=== PATIENT | female | born 1995 | race Caucasian/White ===

== ENCOUNTER 2019-06-27 12:32 | Emergency (ER) | payer BC ==
[~2019-06-27] VITALS: Ht 165.1 cm; Wt 76.4 kg
--- NOTE | 2019-06-27 12:53 | NUR ---
PT C/O DIARRHEA FOR A WHILE. HX CROHNS. PT SEES BLOOD IN TOILET AFTER DIARRHEA, CURRENTLY HAS ANAL FISSURE. PT CURRENTLY SEEING GI, NEXT APPT IN TWO WEEK. CONNECTED TO MONITORING. CALL LIGHT IN REACH.
--- NOTE | 2019-06-27 13:09 | NUR ---
IV START. LABS COLLECTED AND TAKEN TO LAB.
[2019-06-27 13:15] LABS: BASOPHILS # (AUTO) 0.04 x10^3/uL (0-0.1); BASOPHILS % (AUTO) 0 % (0-1); EOSINOPHILS # (AUTO) 0.06 x10^3/uL (0-0.4); EOSINOPHILS % (AUTO) 0 % (1-7); LYMPHOCYTES # (AUTO) 2.78 x10^3/uL (1-3.4); LYMPHOCYTES % (AUTO) 21 % (22-44); MD NO; MEAN CORPUSCULAR HEMOGLOBIN 29.9 pg (27.0-34.8); MEAN CORPUSCULAR HGB CONC 33.2 g/dL (32.4-35.8); MEAN CORPUSCULAR VOLUME 89.9 fL (80-100); MEAN PLATELET VOLUME 7.2 fL (7.4-10.4); MONOCYTES # (AUTO) 0.62 x10^3/uL (0.2-0.8); MONOCYTES % (AUTO) 5 % (2-9); NEUTROPHILS # (AUTO) 9.52 x10^3/uL (1.8-6.8); NEUTROPHILS % (AUTO) 73 % (42-75); PLATELET COUNT 262 x10^3/uL (130-400); RED BLOOD COUNT 4.54 x10^6/uL (3.82-5.3); RED CELL DISTRIBUTION WIDTH 13.4 % (9.6-15.2)
--- NOTE | 2019-06-27 13:18 | NUR ---
PT AMBULATED TO RESTROOM WITH STEADY GAIT TO PROVIDE URINE SAMPLE. UA COLLECTED AND SENT TO LAB.
[2019-06-27 13:26] LABS: ALANINE AMINOTRANSFERASE 12 U/L (12-78); ALBUMIN 3.3 g/dL (3.4-5.0); ANION GAP 7 mmol/L (5-15); CALCIUM 8.7 mg/dL (8.5-10.1); CHLORIDE 110 mmol/L (98-107); CREATININE 1.09 mg/dL (0.55-1.02)
[2019-06-27 13:30] LABS: ALKALINE PHOSPHATASE 59 U/L (45-117); BILIRUBIN,TOTAL 0.2 mg/dL (0.2-1.0); TOTAL PROTEIN 7.3 g/dL (6.4-8.2)
[2019-06-27] MEDS ORDERED: SODIUM CHLORIDE FLUSH 10ML SYR IVF ONE ×2 (13:30→14:00)
[2019-06-27 13:45] LABS: CULTURE INDICATED? YES; MICROSCOPIC INDICATED
[2019-06-27] MEDS ORDERED: MORPHINE SULFATE 4 MG/ML, 1ML IVPush ONE (14:00)
[2019-06-27] MEDS ORDERED: ACETAMINOPHEN 500 MG TABLET PO ONE (14:00)
[2019-06-27] MEDS ORDERED: SODIUM CHLORIDE 0.9% 1,000ML IVBOLUS ONE (14:00)
--- NOTE | 2019-06-27 14:13 | NUR ---
PT TAKEN TO CT.
--- NOTE | 2019-06-27 14:34 | NUR ---
PT BACK FROM CT
[2019-06-27] MEDS ORDERED: ACETAMINOPHEN 500 MG TABLET ONE (14:37)
[2019-06-27 14:41] VITALS: BP 119/75
--- NOTE | 2019-06-27 14:41 | NUR ---
MEDS ADMIN PER AUG. PT REFUSED MORPHINE AT THIS TIME. IVF RUNNING. PT RESTING COMFORTABLY ON [facility]. LUIS.
--- NOTE | 2019-06-27 14:56 | NUR ---
ALL RESULTS ARE BACK AT THIS TIME. CHART UP FOR RECHECK.
--- NOTE | 2019-06-27 15:17 | NUR ---
dr porras spoke with dr espinal
--- NOTE | 2019-06-27 15:28 | NUR ---
PT STATES HER STROUD IS FEELING BETTER AFTER TYLENOL AND 1L FLUIDS.
--- NOTE | 2019-06-27 15:38 | NUR ---
TASK RN: THIS RN PRESENT WHILE SCARLET LEIGH, PERFORMED ASSESSMENT OF PATIENT'S BOTTOM. PT TOLERATED WITH NO COMPLICATIONS.
[2019-06-27] MEDS ORDERED: OMNIPAQUE 350 MG/ML, 100ML BOTTLE ONE (15:53)
== END 2019-06-27 15:57 | disposition home or self-care (01) ==
LOC: ED 13:04
DX: N30.00 Acute cystitis without hematuria (principal); K60.0 Acute anal fissure; R10.84 Generalized abdominal pain
CPT/HCPCS: 36415; 74177; 80053; 81001; 84703; 85025; 87086; 99284; J7030; Q9967

== ENCOUNTER 2019-07-17 06:13 | Inpatient (IN) | payer BC ==
[~2019-07-17] VITALS: Ht 165.1 cm; Wt 74.9 kg
--- NOTE | 2019-07-17 06:37 | NUR ---
THIS IS A 23 YO FEMALE COMING IN FOR N/V/D STARTING SUNDAY WITH 10/10 EPIGASTRIC PAIN THAT IS CONSTANT. PATIENT HAS HX OF CROHNS DISEASE. PATIENT CONTACTED HER GI DOCTOR WHE NSYMPTOMS STARTED, GI DOCTOR STATED PATIENT HAD ELEVATED WHITE CELL COUNT FROM LAB WORK DONE ON SUNDAY, AND WANTED PATIENT TO GO BACK 07/17 FOR FOLLOW UP LABS, PAIN WAS TOO SEVERE THIS AM AND PATIENT WAS VOMITING SINCE 3AM. DENIES DIZZINESS, DENIES CP/SOB. PATIENT A&OX4. ALL MONITORING IN PLACE, SINUS TACHYCARDIC ON MONITOR AT 120, CALL LIGHT IN REACH, DENIES NEEDS AT THIS TIME.
[2019-07-17] MEDS ORDERED: AZAT50TA9 PO (06:46)
[2019-07-17] MEDS ORDERED: BUDE3CAP2 PO (06:46)
--- NOTE | 2019-07-17 06:53 | NUR ---
BEDSIDE REPORT GIVEN TO VIANCA HORN. PLAN OF CARE DISCUSSED. WAITING FOR FURTHER ORDERS
[2019-07-17] MEDS ORDERED: ONDANSETRON 2MG/ML, 2ML IVPush ONE (07:00)
[2019-07-17] MEDS ORDERED: SODIUM CHLORIDE FLUSH 10ML SYR IVF ONE (07:00)
[2019-07-17] MEDS ORDERED: SODIUM CHLORIDE 0.9% 1,000ML IVBOLUS ONE ×2 (07:00→10:00)
[2019-07-17] MEDS ORDERED: MORPHINE SULFATE 4 MG/ML, 1ML IVPush PRN (07:00)
[2019-07-17] MEDS ORDERED: ONDANSETRON 2MG/ML, 2ML ONE (07:08)
[2019-07-17] MEDS ORDERED: MORPHINE SULFATE 4 MG/ML, 1ML ONE (07:08)
--- NOTE | 2019-07-17 07:31 | NUR ---
ERMD IN TO EVAL PT. ORDERS RECIEVED, PIV INITIATED AND PT MEDICATED PER AUG. PT PROVIDED WITH ICE CHIPS WITH ERMD OK
[2019-07-17 07:39] LABS: BASOPHILS # (AUTO) 0.02 x10^3/uL (0-0.1); BASOPHILS % (AUTO) 0 % (0-1); EOSINOPHILS # (AUTO) 0.01 x10^3/uL (0-0.4); EOSINOPHILS % (AUTO) 0 % (1-7); LYMPHOCYTES # (AUTO) 1.32 x10^3/uL (1-3.4); LYMPHOCYTES % (AUTO) 12 % (22-44); MD NO; MEAN CORPUSCULAR HGB CONC 33.5 g/dL (32.4-35.8); MEAN CORPUSCULAR VOLUME 89.6 fL (80-100); MEAN PLATELET VOLUME 8.1 fL (7.4-10.4); MONOCYTES # (AUTO) 0.74 x10^3/uL (0.2-0.8); MONOCYTES % (AUTO) 7 % (2-9); NEUTROPHILS # (AUTO) 9.19 x10^3/uL (1.8-6.8); NEUTROPHILS % (AUTO) 81 % (42-75); PLATELET COUNT 307 x10^3/uL (130-400); RED BLOOD COUNT 4.52 x10^6/uL (3.82-5.3); RED CELL DISTRIBUTION WIDTH 13.3 % (9.6-15.2)
[2019-07-17 07:49] LABS: ALANINE AMINOTRANSFERASE 10 U/L (12-78); ALBUMIN 3.6 g/dL (3.4-5.0); ANION GAP 9 mmol/L (5-15); CALCIUM 9.4 mg/dL (8.5-10.1); CHLORIDE 108 mmol/L (98-107); CREATININE 1.06 mg/dL (0.55-1.02)
[2019-07-17 07:54] LABS: ALKALINE PHOSPHATASE 55 U/L (45-117); BILIRUBIN,TOTAL 0.5 mg/dL (0.2-1.0)
[2019-07-17 08:02] LABS: MICROSCOPIC INDICATED
[2019-07-17 08:06] LABS: CULTURE INDICATED? YES
--- NOTE | 2019-07-17 08:25 | NUR ---
PT RESTING ON ALFREDA, VSS, NAD NOTED
--- NOTE | 2019-07-17 09:51 | NUR ---
PT RESTING ON FATHER GANT AT BEDSIDE. ERMD IN TO UPDATE PT ON POC, PT TO BE ADMITTED, VSS, ALEJANDRO NOTED
[2019-07-17] MEDS ORDERED: morphine SULFATE 10 MG/ML, 1ML IVPush PRN (10:00)
[2019-07-17] MEDS ORDERED: ACETAMINOPHEN 325 MG TABLET PO PRN (10:00)
--- NOTE | 2019-07-17 10:06 | NUR ---
REPORT TO RECIEVING RN
[2019-07-17] MEDS: SODIUM CHLORIDE 0.9% 1,000 ML IV SCH ×2 (11:20→18:19)
[2019-07-17 11:27] VITALS: BP 116/75
[2019-07-17 13:58] VITALS: BP 109/68
[2019-07-17] MEDS: ONDANSETRON 2MG/ML, 2ML IVPush PRN (16:53)
[2019-07-17 18:47] VITALS: BP 123/79
[2019-07-18 01:10] VITALS: BP 118/77
[2019-07-18] MEDS: ONDANSETRON 2MG/ML, 2ML IVPush PRN (01:16)
[2019-07-18] MEDS: SODIUM CHLORIDE 0.9% 1,000 ML IV SCH ×3 (01:21→14:00)
[2019-07-18 05:30] LABS: MEAN CORPUSCULAR HEMOGLOBIN 29.5 pg (27.0-34.8); MEAN CORPUSCULAR HGB CONC 32.8 g/dL (32.4-35.8); MEAN CORPUSCULAR VOLUME 89.8 fL (80-100); PLATELET COUNT 232 x10^3/uL (130-400); RED BLOOD COUNT 3.72 x10^6/uL (3.82-5.3); RED CELL DISTRIBUTION WIDTH 13.7 % (9.6-15.2)
[2019-07-18 05:35] LABS: ALANINE AMINOTRANSFERASE 8 U/L (12-78); ALBUMIN 2.7 g/dL (3.4-5.0); ANION GAP 8 mmol/L (5-15); CALCIUM 8.2 mg/dL (8.5-10.1); CHLORIDE 115 mmol/L (98-107)
[2019-07-18 05:37] LABS: ALKALINE PHOSPHATASE 42 U/L (45-117); BILIRUBIN,TOTAL 0.3 mg/dL (0.2-1.0); CHOLESTEROL, TOTAL 161 mg/dL (140-239); CREATININE 0.89 mg/dL (0.55-1.02); HDL CHOL % 20 % (28-40); HDL CHOLESTEROL (DIRECT) 32 mg/dL (40-60); LDL CHOLESTEROL,CALCULATED 109 mg/dL (54-169); LDL/HDL RATIO 3.4 (0.5-3.0); TRIGLYCERIDES 99 mg/dL (50-200); VLDL CHOLESTEROL 20 mg/dL (0-25)
[2019-07-18 06:02] LABS: BASOPHILS # (AUTO) 0.04 x10^3/uL (0-0.1); BASOPHILS % (AUTO) 1 % (0-1); EOSINOPHILS # (AUTO) 0.07 x10^3/uL (0-0.4); EOSINOPHILS % (AUTO) 1 % (1-7); LYMPHOCYTES # (AUTO) 2.81 x10^3/uL (1-3.4); LYMPHOCYTES % (AUTO) 34 % (22-44); MD SCAN; MONOCYTES # (AUTO) 0.95 x10^3/uL (0.2-0.8); MONOCYTES % (AUTO) 12 % (2-9); NEUTROPHILS # (AUTO) 4.37 x10^3/uL (1.8-6.8); NEUTROPHILS % (AUTO) 53 % (42-75)
[2019-07-18 06:56] VITALS: BP 113/72
[2019-07-18] MEDS ORDERED: BUDESONIDE 3 MG PO SCH (09:00)
[2019-07-18] MEDS ORDERED: AZATHIOPRINE 50 MG TABLET PO SCH (09:00)
[2019-07-18] MEDS ORDERED: POTASSIUM PHOSPHATE 22 MEQ in SODIUM CHLORIDE 0.9% 500 ML IV ONE (09:30)
[2019-07-18 12:20] VITALS: BP 121/78
[2019-07-18] MEDS ORDERED: ACET325T26 PO (12:48)
== END 2019-07-18 16:05 | disposition home or self-care (01) | DRG 439 ==
LOC: ED 09:45 → EDIP 09:46 → ED 09:56 → 3N 10:35 → DCLOUNGE 07-18 16:01
PROVIDERS: ADMIT Internal Medicine Infectious Disease; ATTEND Internal Medicine Infectious Disease
DX: K85.30 Drug induced acute pancreatitis without necrosis or infection (principal); K50.90 Crohn's disease, unspecified, without complications; E87.2 Acidosis; E86.0 Dehydration; F17.200 Nicotine dependence, unspecified, uncomplicated; T50.995A Adverse effect of other drugs, medicaments and biological substances, initial encounter; Z80.0 Family history of malignant neoplasm of digestive organs; Z82.49 Family history of ischemic heart disease and other diseases of the circulatory system; Y92.89 Other specified places as the place of occurrence of the external cause; Z79.899 Other long term (current) drug therapy
CPT/HCPCS: 36415; 76700; 80053; 80061; 81001; 83690; 83735; 84100; 84703; 85025; 87086; 93005; 96361; 96374; 96375; 99285; G0378; J2405; J2270; J7030; J7040

== ENCOUNTER 2019-12-22 16:46 | Emergency (ER) | payer BC ==
[~2019-12-22] VITALS: Ht 165.1 cm; Wt 77.3 kg
[~2019-12-22 16:46] MED LIST: ACET325T26 PO; AZAT50TA9 PO; BUDE3CAP2 PO
[2019-12-22] MEDS ORDERED: MAALOX/HYOSCYAMINE/LIDOCAINE 45 ML BTL PO ONE (17:00)
[2019-12-22] MEDS ORDERED: FAMOTIDINE 20 MG TABLET PO ONE (17:00)
--- NOTE | 2019-12-22 17:13 | NUR ---
FIRST CONTACT WITH PT. PT WAS ADMITTED RECENTLY FOR PANCREATITIS. PT CAME IN TODAY CO OF ABD PAIN, FEVER, AND N. PT'S AOX4. RESPS EVEN AND UNLABORED. BP/SPO2 MONITORS IN PLACE. CALL LIGHT WITHIN REACH.
--- NOTE | 2019-12-22 17:14 | NUR ---
PT AMB TO BR WITH STEADY GAIT. URINE CUP GIVEN.
[2019-12-22] MEDS ORDERED: FAMOTIDINE 20 MG TABLET ONE (17:17)
[2019-12-22] MEDS ORDERED: MAALOX/HYOSCYAMINE/LIDOCAINE 45 ML BTL ONE (17:17)
--- NOTE | 2019-12-22 17:22 | NUR ---
PT MEDICATED PER EMAR. PT TOLERATED WELL. PT'S AOX4. RESPS EVEN AND UNLABORED.
--- NOTE | 2019-12-22 17:26 | NUR ---
PT PROVIDED URINE SAMPLE AT THIS TIME. UA SENT.
[2019-12-22 17:33] LABS: BASOPHILS # (AUTO) 0.03 x10^3/uL (0-0.1); BASOPHILS % (AUTO) 0 % (0-1); EOSINOPHILS # (AUTO) 0.01 x10^3/uL (0-0.4); EOSINOPHILS % (AUTO) 0 % (1-7); LYMPHOCYTES % (AUTO) 15 % (22-44); MD NO; MEAN CORPUSCULAR HEMOGLOBIN 29.5 pg (27.0-34.8); MEAN CORPUSCULAR HGB CONC 32.2 g/dL (32.4-35.8); MEAN CORPUSCULAR VOLUME 91.7 fL (80-100); MEAN PLATELET VOLUME 7.4 fL (7.4-10.4); MONOCYTES # (AUTO) 0.34 x10^3/uL (0.2-0.8); MONOCYTES % (AUTO) 2 % (2-9); NEUTROPHILS # (AUTO) 12.15 x10^3/uL (1.8-6.8); NEUTROPHILS % (AUTO) 83 % (42-75); PLATELET COUNT 243 x10^3/uL (130-400); RED BLOOD COUNT 4.43 x10^6/uL (3.82-5.3); RED CELL DISTRIBUTION WIDTH 12.9 % (9.6-15.2)
[2019-12-22 17:45] LABS: ALANINE AMINOTRANSFERASE 23 U/L (12-78); ALBUMIN 3.8 g/dL (3.4-5.0); ANION GAP 8 mmol/L (5-15); CALCIUM 8.8 mg/dL (8.5-10.1); CHLORIDE 107 mmol/L (98-107); CREATININE 1.11 mg/dL (0.55-1.02)
[2019-12-22 17:49] LABS: ALKALINE PHOSPHATASE 52 U/L (45-117); BILIRUBIN,TOTAL 0.5 mg/dL (0.2-1.0); TOTAL PROTEIN 7.6 g/dL (6.4-8.2)
[2019-12-22] MEDS ORDERED: ACETAMINOPHEN 500 MG TABLET ONE (17:54)
[2019-12-22 18:17] LABS: MICROSCOPIC NOT IND
[2019-12-22] MEDS ORDERED: SODIUM CHLORIDE 0.9% 1,000ML IVBOLUS ONE (18:30)
[2019-12-22] MEDS ORDERED: ACETAMINOPHEN 500 MG TABLET PO ONE (18:30)
--- NOTE | 2019-12-22 18:34 | NUR ---
PIV EST ON R FOREARM WITH NO COMPLICATIONS. PT MEDICATED PER EMAR. NS INFUSING AT THIS TIME. PT TOLERATED WELL.
--- NOTE | 2019-12-22 18:48 | NUR ---
PT IN CT AT THIS TIME.
[2019-12-22] MEDS ORDERED: OMNIPAQUE 350 MG/ML, 100ML BOTTLE ONE (18:49)
[2019-12-22] MEDS ORDERED: SODIUM CHLORIDE FLUSH 10ML SYR IVF ONE (19:00)
--- NOTE | 2019-12-22 19:08 | NUR ---
REPORT GIVEN TO BLANCA COLEY.
--- NOTE | 2019-12-22 19:10 | NUR ---
assumed care of pt. report from Lilibeth COLEY. pt here for abd pain. pt sitting up on gurney in no apparent distress texting on cell phone. awaiting imaging results. no famil at bedside. pt updated on POC
--- NOTE | 2019-12-22 19:20 | NUR ---
pt ambualted to BR without difficulty
[2019-12-22 20:10] VITALS: BP 118/75
[2019-12-22] MEDS ORDERED: ISOT20CA PO (20:14)
[2019-12-22] MEDS ORDERED: ADAL40SY SQ (20:14)
[2019-12-22] MEDS ORDERED: OMEP40CA42 PO (20:14)
--- NOTE | 2019-12-22 20:22 | NUR ---
no changes. pt resting in position of comfort. awaiting test results. pt updated on POC
--- NOTE | 2019-12-22 20:51 | NUR ---
this pt was D/C by another RN
== END 2019-12-22 20:49 | disposition home or self-care (01) ==
LOC: ED 20:15
DX: R10.84 Generalized abdominal pain (principal); R10.12 Left upper quadrant pain; R19.7 Diarrhea, unspecified; J02.9 Acute pharyngitis, unspecified; R07.89 Other chest pain; R00.0 Tachycardia, unspecified
CPT/HCPCS: 36415; 74177; 80053; 81003; 83690; 84703; 85025; 87081; 87880; 93005; 96360; 99285; J7030; Q9967